=== PATIENT | male | born 1995 | race Two or more races ===

== ENCOUNTER 2017-06-13 17:14 | Emergency (ER) | payer MEDICAID, OTHER ==
[~2017-06-13] VITALS: Ht 172.7 cm; Wt 90.7 kg
[2017-06-13 17:14] VITALS: BP 129/70
== END 2017-06-13 18:28 | disposition home or self-care (01) ==
LOC: ER 17:16
DX: F29 Unspecified psychosis not due to a substance or known physiological condition (principal); J45.909 Unspecified asthma, uncomplicated
CPT/HCPCS: A4606; Z7610